=== PATIENT | male | born 1985 | race Native Hawaiian/Other Pacific Islander ===

== ENCOUNTER 2022-10-08 09:06 | Emergency (ER) | payer SELFPAY ==
[~2022-10-08] VITALS: Ht 182.9 cm; Wt 145.1 kg
[2022-10-08 09:23] VITALS: BP_SYST 135
--- NOTE | 2022-10-08 09:30 | NUR ---
PT BIB SELF FROM HOME. PT C/O LOWER RT QUADRANT ABD PAIN WHEN EATING. PT C/O NAUSEA AND CONSTIPATION. PT CURRENTLY 5/10 ABD PAIN WITH TEMP OF 97.4F. PT CURRENTLY TAKING MIRALAX AND HAVING WATERY STOOL. LAST REGULAR BOWEL MOVEMENT THURS 10/03. PT IS AAO X4, APPEARS SLIGHTLY ANXIOUS BUT IS RESTING COMFORTABLY WITH RAILS UP VSS
--- NOTE | 2022-10-08 09:36 | NUR ---
Patient to ER bed 4 to gown for evaluation. Side rails up. Report given to Bruce NORWOOD.
--- NOTE | 2022-10-08 09:38 | NUR ---
ER at bedside examining patient.
--- NOTE | 2022-10-08 09:55 | NUR ---
URINAL GIVEN, PT AWARE OF NEEDED URINE SPECIMEN.
[2022-10-08 10:38] LABS: BASOPHILS # (AUTO) 0.1 K/uL (0.0-0.2); BASOPHILS % (AUTO) 0.7 % (0.0-2.0); EOSINOPHILS # (AUTO) 0.2 K/uL (0.0-0.4); EOSINOPHILS % (AUTO) 1.4 % (0.0-4.0); HEMATOCRIT 43.8 % (36-54); HEMOGLOBIN 14.5 g/dL (14.0-18.0); LYMPHOCYTES # (AUTO) 2.7 K/uL (1.0-5.5); LYMPHOCYTES % (AUTO) 21.3 % (20.5-51.5); MEAN CORPUSCULAR HEMOGLOBIN 26 pg (27-31); MEAN CORPUSCULAR HGB CONC 33 % (32-36); MEAN CORPUSCULAR VOLUME 79 fL (79.0-98.0); MONOCYTES # (AUTO) 1.1 K/uL (0.0-1.0); MONOCYTES % (AUTO) 8.7 % (1.7-9.3); NEUTROPHILS # (AUTO) 8.6 K/uL (1.8-7.7); NEUTROPHILS % (AUTO) 67.9 % (40.0-70.0); PLATELET COUNT (AUTO) 296 K/uL (130-430); RED BLOOD CELL COUNT(AUTO) 5.57 MIL/uL (4.2-6.2); RED CELL DISTRIBUTION WIDTH 13.3 % (9.0-15.0); WHITE BLOOD COUNT (AUTO) 12.7 K/uL (4.8-10.8)
[2022-10-08 10:57] LABS: ALBUMIN 3.5 g/dL (3.4-4.8); TOTAL BILIRUBIN 1.3 mg/dL (0.0-1.0)
[2022-10-08] MEDS ORDERED: SULF1TAB48 PO (11:05)
[2022-10-08] MEDS ORDERED: METR-154 PO (11:05)
[2022-10-08] MEDS ORDERED: TRAM50TA2 PO (11:05)
[2022-10-08 11:09] LABS: BILIRUBIN,URINE 1+ (NEGATIVE); BLOOD, URINE NEGATIVE (NEGATIVE); CLARITY/URINE CLEAR (CLEAR); GLUCOSE,URINE NEGATIVE (NEGATIVE); KETONES,URINE NEGATIVE (NEGATIVE); LEUKOCYTE ESTERASE ,URINE NEGATIVE (NEGATIVE); NITRITE, URINE NEGATIVE (NEGATIVE); PROTEIN URINE 1+ (NEGATIVE); UROBILINOGEN,URINE 0.2 (0.2-1.0)
--- NOTE | 2022-10-08 11:17 | NUR ---
ER at bedside examining patient.
[2022-10-08 11:18] LABS: COLOR,URINE AMBER (YELLOW)
[2022-10-08 11:23] VITALS: BP_SYST 160
--- NOTE | 2022-10-08 11:24 | NUR ---
Patient given written and verbal discharge instructions and verbalizes understanding. ER MD discussed with patient the results and treatment provided. Patient in stable condition. ID arm band removed. Rx of METRONIDAZOLE, BACTRIM TAB, TRAMADOL given. Patient educated on DIVERTICULITIS and to follow up with PMD. Pain Scale . Opportunity for questions provided and answered. Medication side effect fact sheet provided.
[2022-10-08 11:35] LABS: BACTERIA,URINE None Seen /HPF (None Seen); MUCUS,URINE 2+ /LPF (None Seen); RBC,URINE 0-3 /HPF (0-3); WBC,URINE 0-3 /HPF (0-3)
== END 2022-10-08 11:24 | disposition home or self-care (01) ==
LOC: SED 09:06
DX: K57.92 Diverticulitis of intestine, part unspecified, without perforation or abscess without bleeding (principal); R10.30 Lower abdominal pain, unspecified; Z79.899 Other long term (current) drug therapy
CPT/HCPCS: 36415; 76376; 80053; 81000; 83690; 85025; 99284